=== PATIENT | male | born 1940 | race Caucasian/White ===

== ENCOUNTER 2020-12-23 16:12 | Emergency (ER) | payer OTHER ==
[~2020-12-23] VITALS: Ht 170.2 cm; Wt 65.8 kg
[2020-12-23] MEDS ORDERED: ELIQUIS5 M1 PO (18:04)
== END 2020-12-23 18:15 | disposition home or self-care (01) ==
LOC: ED 16:12
DX: I82.441 Acute embolism and thrombosis of right tibial vein (principal); E11.9 Type 2 diabetes mellitus without complications; Z90.89 Acquired absence of other organs
CPT/HCPCS: 93971; 99283-25

== ENCOUNTER 2022-09-10 06:03 | Observation (INO) | payer OTHER ==
[~2022-09-10] VITALS: Ht 170.2 cm; Wt 60.0 kg
--- OUTSIDE RECORDS SUMMARY | ~2022-09-10 | XMS | Continuity of Care Document ---
Demographics + + + | Address | [address] | | | [place] [address] | + + + | Preferred Language | Unknown | + + + | Marital Status | | + + + | Denominational Affiliation | Unknown | + + + | Race | White | + + + | Ethnic Group | Not or | + + + Author + + + | Author | [place] | + + + | Organization | [place] | + + + | Address | [address] | | | [place], [place] [address] | + + + | Phone | | + + + Care Team Providers + + + + | Care Caddy Name | Role | Phone | + + + + Unavailable | Unavailable | + + + + Unavailable | Unavailable | + + + + Allergies No information. Encounters No information. Functional Status No information. Immunizations No information. Medications + + + + | date | description | facility | + + + + | 2022-02-10 00:00 | [facility] | [facility] | + + + + Problems + + + + | date | description | facility | + + + + | 2020-12-23 00:00 | Deep vein thrombosis (DVT) | [facility] | | | | | + + + + | 2022-02-10 00:00 | Abrasion of scalp | [facility] | + + + + | 2022-02-10 00:00 | Injury of head | [facility] | + + + + Procedures No information. Results/Labs No information. Social History + + + + | date | description | facility | + + + + | 2022-02-10 00:00 | Unknown if ever smoked | [facility] | + + + + Vital Signs + + + +---------+ | date | measurement | value | units | + + + +---------+ | 2022-02-10 00:00 | BMI | 22.7 | kg/m2 | + + + +---------+ | 2022-02-10 00:00 | BP_diastolic | 60 | mmHg | + + + +---------+ | 2022-02-10 00:00 | BP_systolic | 136 | mmHg | + + + +---------+ | 2022-02-10 00:00 | heart_rate | 71 | /min | + + + +---------+ | 2022-02-10 00:00 | height_metric | 170.18 | cm | + + + +---------+ | 2022-02-10 00:00 | height_standard | 67 | in | + + + +---------+ | 2022-02-10 00:00 | o2_saturation | 98 | % | + + + +---------+ | 2022-02-10 00:00 | respiration_rate | 15 | /min | + + + +---------+ | 2022-02-10 00:00 | temperature_metric | 36.83 | C | | | | | | + + + +---------+ | 2022-02-10 00:00 | | 98.3 | F | | | temperature_standar | | | | | d | | | + + + +---------+ | 2022-02-10 00:00 | weight_metric | 65.77 | kg | + + + +---------+ | 2022-02-10 00:00 | weight_standard | 145 | lb | + + + +---------+"
--- OUTSIDE RECORDS SUMMARY | ~2022-09-10 | XMS | Continuity of Care Document ---
Demographics + + + | Address | [address] | | | [place] [address] | + + + | Preferred Language | Unknown | + + + | Marital Status | | + + + | Confucianist Affiliation | Unknown | + + + | Race | White | + + + | Ethnic Group | Not or | + + + Author + + + | Author | [facility] | + + + | Organization | [facility] | + + + | Address | [address] | | | [place], [place] [address] | + + + | Phone | | + + + Care Team Providers + + + + | Care Retail Pricing Coordinator Name | Role | Phone | + + + + Unavailable | Unavailable | + + + + Unavailable | Unavailable | + + + + Allergies No information. Encounters No information. Functional Status No information. Immunizations No information. Medications + + + + | date | description | facility | + + + + | 2022-02-10 00:00 | [facility] | [facility] | + + + + Problems + + + + | date | description | facility | + + + + | 2020-12-23 00:00 | Deep vein thrombosis (DVT) | [facility] | | | | | + + + + | 2022-02-10 00:00 | Abrasion of scalp | [facility] | + + + + | 2022-02-10 00:00 | Injury of head | [facility] | + + + + Procedures No information. Results/Labs No information. Social History + + + + | date | description | facility | + + + + | 2022-02-10 00:00 | Unknown if ever smoked | [facility] | + + + + Vital [...]
--- OUTSIDE RECORDS SUMMARY | ~2022-09-10 | XMS | Continuity of Care Document ---
Demographics + + + | Address | [address] | | | [place] [address] | + + + | Preferred Language | Unknown | + + + | Marital Status | | + + + | Religion Affiliation | Unknown | + + + | Race | White | + + + | Ethnic Group | Not or | + + + Author + + + | Author | [facility] | + + + | Organization | [facility] | + + + | Address | [address] | | | [place] [address] | + + + | Phone | | + + + Care Team Providers + + + + | Care Tool Procurement Coordinator Name | Role | Phone | + + + + Unavailable | Unavailable | + + + + Unavailable | Unavailable | + + + + Allergies and Intolerances + + + + + + | date | description | facility | reaction | severity | + + + + + + | (no date) | No Known Drug | [facility] | (no reaction) | (no severity) | | | Allergies | | | | + + + + + + Encounters No information. Functional Status No information. Immunizations No information. Medications + + + + | date | description | facility | + + + + | 2022-02-10 00:00 | [facility] | [facility] | + + + + Problems + + + + | date | description | facility | + + + + | 2020-12-23 00:00 | Deep vein thrombosis (DVT) | [facility] | | | | | + + + + | 2022-02-10 00:00 | Abrasion of scalp | [facility] | + + + + | 2022-02-10 00:00 | Injury of head | [facility] | + + + + Procedures No information. Results/Labs No information. Social History + + + + | date | description | facility | + + + + | 2022-02-10 00:00 | Unknown if ever smoked | [facility] | + + + + Vital [...]
[~2022-09-10 06:03] MED LIST: ELIQUIS5 M1 PO; METFORMIN HCL500 MG PO
[2022-09-10 06:18] LABS: BASOPHILS 0.5 % (0-2); EOSINOPHILS 1.5 % (0-6); HEMATOCRIT 41.8 % (35.0-50.0); LYMPHOCYTES 29.5 % (24-44); MCH 30.7 (27-36); MCHC 33.4 g/dl (30-36); MONOCYTES 7.4 % (0-12); NEUTROPHILS 61.1 % (39-80); PLATELET COUNT 176 K/uL (140-440); RBC 4.55 M/ul (4.3-5.7); RDW 13.4 (10.5-15.0)
[2022-09-10 06:32] LABS: ALBUMIN 3.5 g/dL (3.4-5.0); ANION GAP 11.3 (7-21); BILIRUBIN, TOTAL 0.5 ng/dL (0.2-1.0); BUN/CREATININE RATIO 15.17 (6.0-28.6); CALCIUM 9.1 mg/dL (8.5-10.1); CREATININE, SERUM 1.12 mg/dL (0.70-1.30); POTASSIUM 3.3 mmol/L (3.5-5.1)
[2022-09-10] MEDS ORDERED: ONDANSETRON HCL4 MG PO (06:50)
[2022-09-10] MEDS ORDERED: MECLIZINE HCL12.5 MG PO (06:50)
[2022-09-10 11:00] VITALS: BP 170/58
--- NOTE | 2022-09-10 11:43 | NUR ---
PT CALLS APPROPRIATELY TO GET UP TO USE THE URNIAL AT BEDSIDE. RETURNS TO RESTING IN BED. STATES HE IS NOT DIZZY WHEN HE IS STILL, JUST WITH MOVEMENT. STANDING AND RETURNING TO BED WELL TOLERATED NO ASSISTANCE REQUIRED. STANDBY FOR SAFETY ONLY. FRESH H20 AND CALL LIGHT AT BEDSIDE DENIES OTHER NEEDS OF
--- NOTE | 2022-09-10 12:17 | NUR ---
PT UP TO WORK WITH P/T MANUVERS CAUSE A BOUT OF N/V. NAUSEA RESOLVES QUICKLY AT REST. PT EATING NOON MEAL CURRENTLY. ALTERNATIVES OFFERED.
--- NOTE | 2022-09-10 12:26 | NUR ---
PT C/O PHILIPPE TYLENOL PROVIDED.
--- NOTE | 2022-09-10 12:55 | NUR ---
CHECKING BACK WITH PT HE AGREES BOTH HEADACHE AND NAUSEA HAVE PASSED. HE IS RESTING EYES CLOSED IN BED AND AGREES HE IS COMFORTABLE.
[2022-09-10] MEDS ORDERED: INSULIN GL100 UNIT/4 SUB-Q (13:26)
[2022-09-10] MEDS ORDERED: [UNRECOGNIZED DRUG - REMARK] (13:26)
--- NOTE | 2022-09-10 13:29 | NUR ---
Will attempt to get a list of current medications from [place] Sunday when open
--- NOTE | 2022-09-10 13:33 | EKG ---
[facility] [address] [place] [address] Signed Sinus rhythm with sinus arrhythmia with occasional premature ventricular complexes Otherwise normal ECG No previous ECGs available Confirmed by Jorge Duckworth MD () on 09/10/2022 1:32:58 PM Electronically Signed By: JORGE DUCKWORTH MD 09/10/22 1333 PATIENT NAME: GURDEEP JAMES Electrocardiogram DATE OF : 38 PHYSICIAN: JORGE DUCKWORTH MD REPORT #: [id number] REPORT IS CONFIDENTIAL AND NOT TO BE RELEASED WITHOUT AUTHORIZATION
[2022-09-10 14:11] VITALS: BP 148/55
--- NOTE | 2022-09-10 14:13 | NUR ---
PATIENT SITTING UP IN BED WATCHING TV. VITALS AND I&O'S CHARTED. CALL LIGHT IN REACH. NO FURTHER NEEDS AT THIS TIME.
--- NOTE | 2022-09-10 14:57 | NUR ---
PT RESTING IN BED AGREES HE IS COMFORTABLE. NO FURTHER NAUSEA OR HEADACHE. CONTINUES TO USE CALL LIGHT TO TOILET DENIES IMMEDIATE NEED AT THIS TIME
--- NOTE | 2022-09-10 16:07 | NUR ---
PT ASSISTED TO USE URINAL, ALEX CARE COMPLETED UNDERGARMENT CHANGED. PT TO THE CHAIR CALL LIGHT AND FRESH H20 IN REACH. HE AMBULATES TO THE CHAIR USING FWW DENIES DIZZINESS OR UNSTEADY GAIT. NO NAUSEA OR OTHER DISCOMFORTS
--- NOTE | 2022-09-10 17:00 | NUR ---
PT BLOOD SUGAR ELEVATED K RIDER INFUSES. INSULIN GIVEN PER SLIDING SCALE. PT UP TO THE TOILET AMBULATES THERE AND BACK WITH NO C/O DIZZINESS. RETURNS TO RESTING IN THE CHAIR WATCHING TV ANTICIPATES EVENING MEAL.
--- NOTE | 2022-09-10 19:13 | NUR ---
REPORT RECEIVED FROM TITA DIAZ. pt UP IN CHAIR WATCHING TV. DENIES NEEDS. CALL LIGHT IN REACH. HR 68 ON TELE 8.
[2022-09-10 20:01] VITALS: BP 145/73
--- NOTE | 2022-09-10 20:13 | NUR ---
CALL LIGHT ANSWERED. pt ASSISTED TO STAND WITH FWW TO VOID IN URINAL. NEW GOWN PROVIDED. TELE IN PLACE, HR 70, SR. ASSESSMENT COMPLETE. NEURO CHECK WNL. pt DENIES ANY DIZZINESS. CBG 231. SS INSULIN ADMINISTERED. SUGAR FREE SNACK PROVIDED. CALL LIGHT IN REACH.
--- NOTE | 2022-09-10 23:13 | NUR ---
pt RESTING IN CHAIR WITH EYES CLOSED. HR 74. BREATHING UNLABORED. CALL LIGHT NEXT TO PATIENT.
[2022-09-11 01:00] VITALS: BP 141/58
--- NOTE | 2022-09-11 01:03 | NUR ---
CALL LIGHT ANSWERED. pt STANDS FOR VOID IN URINAL WITH FWW. DENIES DIZZINESS. BACK IN CHAIR. NEURO CHECK WNL. VSS. CALL LIGHT IN REACH.
--- NOTE | 2022-09-11 03:54 | NUR ---
pt UP IN CHAIR RESTING WITH EYES CLOSED. BREATHING UNLABORED, HR 56 ON TELE, SR. CALL LIGHT NEXT TO pt.
[2022-09-11 05:25] VITALS: BP 143/54
--- NOTE | 2022-09-11 05:35 | NUR ---
PACKING ROOM WORKER IN ROOM. MRI FORM COMPLETE WITH PATIENT AND FAXED TO LAB. NEURO CHECK UNCHANGED. pt DENIES DIZZINESS. DENIES NEEDS. CALL LIGHT IN REACH.
[2022-09-11 05:58] LABS: BASOPHILS 0.4 % (0-2); EOSINOPHILS 1.3 % (0-6); HEMATOCRIT 41.7 % (35.0-50.0); HEMOGLOBIN 13.7 g/dL (12.0-18.0); LYMPHOCYTES 24.6 % (24-44); MCH 30.6 (27-36); MCHC 32.9 g/dl (30-36); MONOCYTES 8.9 % (0-12); NEUTROPHILS 64.8 % (39-80); PLATELET COUNT 177 K/uL (140-440); RBC 4.48 M/ul (4.3-5.7); RDW 13.7 (10.5-15.0)
[2022-09-11 05:59] LABS: ALBUMIN 3.3 g/dL (3.4-5.0); ALBUMIN/GLOBULIN RATIO 0.89 (1.1-2.4); ANION GAP 14.1 (7-21); BILIRUBIN, TOTAL 0.4 ng/dL (0.2-1.0); BUN/CREATININE RATIO 14.28 (6.0-28.6); CALCIUM 9.5 mg/dL (8.5-10.1); CHOLESTEROL/HDL RATIO 2.8; CREATININE, SERUM 0.98 mg/dL (0.70-1.30); MAGNESIUM 1.9 mg/dL (1.8-2.4); PHOSPHORUS, INORGANIC 4.2 mg/dL (2.5-4.9); POTASSIUM 4.1 mmol/L (3.5-5.1)
--- NOTE | 2022-09-11 07:35 | NUR ---
PT SLEEPING IN RECLINER AT TIME OF SHIFT REPORT, LEFT UNDISTURBED. CALL LIGHT IN REACH FRESH H20 ON CHAIRSIDE TABLE. PT APPEARS COMFORTABLE BREATHING EVEN AND UNLABORED
[2022-09-11] MEDS ORDERED: LIPITOR80 MG PO (09:04)
[2022-09-11] MEDS ORDERED: VITAMIN D3125 MC2 PO (09:05)
[2022-09-11] MEDS ORDERED: NORVASC10 MG PO (09:09)
[2022-09-11] MEDS ORDERED: COZAAR25 MG PO (09:10)
[2022-09-11] MEDS ORDERED: FLOMAX0.4 MG PO (09:11)
[2022-09-11] MEDS ORDERED: ACTOS45 MG PO (09:11)
[2022-09-11] MEDS ORDERED: B-12500 MCG PO (09:17)
--- NOTE | 2022-09-11 09:19 | NUR ---
PT TOLERATES MORNING MEAL SITTING UP IN THE CHAIR. ECHOCARDIOGRAM COMPLETED. PT UP AMBULATING ENTHUSIASTICALLY WITH P/T. WELL TOLERATED, PT DENIES ANY SYMPTOMS OF DIZZINESS, NAUSEA, OR OTHER DISCOMFORTS. STATES HE HAS HAD NO SYMPTOMS AT ALL SINCE YESTERDAY. PT RETURNS TO THE CHAIR AFTER THERAPY CALL LIGHT AND NEEDED ITEMS IN REACH.
[2022-09-11] MEDS ORDERED: JARDIANCE25 MG PO (09:20)
--- NOTE | 2022-09-11 09:20 | NUR ---
Spoke with pt and he states he lives alone. He has three friends who assist him. He states he no longer drives. Friends take him grocery shopping and out and about. He has 3 steps into his apartment. He has fallen on the steps a few times and the landlord installed a rail. He is a , but is not service connected. [facility]. Pt would like help with minimal caregiving and with meals on wheels. Let him know I can contact [facility] and request MOW and [employer] [place]. They will call him and complete an evaluation.
[2022-09-11] MEDS ORDERED: HYDROCHLOROTH12.5 MG PO (09:24)
[2022-09-11] MEDS ORDERED: [UNRECOGNIZED DRUG - OTHER] PO (09:40)
[2022-09-11] MEDS ORDERED: CALCIUM PO (09:40)
[2022-09-11 09:51] VITALS: BP 148/54
--- NOTE | 2022-09-11 09:58 | NUR ---
medications reconciled using [facility]
--- NOTE | 2022-09-11 10:59 | NUR ---
PT BACK FROM COMMUNICATIONS INSTRUCTOR REPORTS IT WAS WELL TOLERATED. RETURNS TO SITTING UP IN THE CHAIR NEEDED ITEMS IN REACH
--- NOTE | 2022-09-11 11:55 | NUR ---
PT SITTING IN CHAIR. APPEARED TO BE ALERT AND ORIENTED. TALKED OF EXPECTED VISIT FROM OWN MEDICAL CODING INSTRUCTOR. ACCEPTED OFFER OF GUIDEPOST AND CONTACT CARD. CONSENTED TO PRAYER. PRAYED FOR HEALING AND ABIDING PEACE.
--- NOTE | 2022-09-11 12:48 | NUR ---
PT CONTINUES UP IN THE CHAIR THIS SHIFT, VISITOR AT CHAIRSIDE. PT DENIES ANY DISCOMFORTS OR NEEDS
[2022-09-11] MEDS ORDERED: MECLIZINE HCL25 MG PO (13:04)
[2022-09-11] MEDS ORDERED: PLAVIX75 MG PO (13:06)
[2022-09-11] MEDS ORDERED: ASPIRIN EC325 MG PO (13:06)
[2022-09-11 13:32] VITALS: BP 116/61
--- NOTE | 2022-09-11 13:55 | NUR ---
PT READY FOR DISCHARGE. DISCHRAGE INSTRUCTIONS REVIEWED WITH PT AND PTS FRIEND PER PT REQUEST. PT AND FRIEND VERBALIZES UNDERSTANDING OF INSTRUCTIONS, MEDICATIONS AND FOLLOW UP. PT STATES HE WOULD LIKE TO GET [facility] AND WILL CALL THEM TOMORROW ABOUT [facility] PRESCRIPTIONS. PT TRANSFERSE SELF TO WHEELCHAIR. NO ADDITOINAL REQUESTS OR CONCERNS. PT WHEELED FROM MED/SURG WITH FRIEND.
--- NOTE | 2022-09-11 16:21 | NUR ---
ATTEMPT TO CONTACT [facility] TO SET UP MEALS ON WHEELS AND PRO[employer] FOR PATIENT. NO ANSWER. MESSAGE LEFT FOR IFTIKHAR VARGAS AT [facility] TO PLEASE CONTACT CASE MANAGEMENT.
== END 2022-09-11 13:45 | disposition home or self-care (01) ==
LOC: ED 06:03 → MS 06:04
PROVIDERS: Internal Medicine; ADMIT Family Medicine; ATTEND Family Medicine
DX: R42 Dizziness and giddiness (principal); E87.6 Hypokalemia; E11.9 Type 2 diabetes mellitus without complications; Z66 Do not resuscitate; Z79.84 Long term (current) use of oral hypoglycemic drugs; Z79.4 Long term (current) use of insulin
CPT/HCPCS: 36415; 70450; 70496; 70498; 70551; 80053; 80061; 83036; 83735; 84100; 85025; 93005; 93010; 93306; 96375; 97110; 97116; 97162; 97165; 99285-25; A9270; G0378; J1815; J2405; J3480; J3490; J7040; J7060; Q9967

== ENCOUNTER 2023-06-08 09:53 | Emergency (ER) | payer OTHER ==
[~2023-06-08] VITALS: Ht 170.2 cm; Wt 56.2 kg
[~2023-06-08 09:53] MED LIST changes: +ACTOS45 MG PO; +ASPIRIN EC325 MG PO; +B-12500 MCG PO; +CALCIUM PO; +COZAAR25 MG PO; +FLOMAX0.4 MG PO; +HYDROCHLOROTH12.5 MG PO; +INSULIN GL100 UNIT/4 SUB-Q; +JARDIANCE25 MG PO; +LIPITOR80 MG PO; +MECLIZINE HCL12.5 MG PO; +MECLIZINE HCL25 MG PO; +NORVASC10 MG PO; +ONDANSETRON HCL4 MG PO; +PLAVIX75 MG PO; +VITAMIN D3125 MC2 PO; +[UNRECOGNIZED DRUG - OTHER] PO; +[UNRECOGNIZED DRUG - REMARK]
[2023-06-08] MEDS ORDERED: LACTATED RINGER'S 1,000 ML IV ONE (10:00)
[2023-06-08 10:10] LABS: BASOPHILS 0.9 % (0-2); EOSINOPHILS 1.4 % (0-6); HEMATOCRIT 41.5 % (35.0-50.0); HEMOGLOBIN 14.2 g/dL (12.0-18.0); LYMPHOCYTES 26.3 % (24-44); MCH 31.2 (27-36); MCHC 34.2 g/dl (30-36); MCV 91.2 fl (81-99); MONOCYTES 9.4 % (0-12); PLATELET COUNT 212 K/uL (140-440); RBC 4.55 M/ul (4.3-5.7); RDW 12.9 (10.5-15.0)
[2023-06-08 10:23] LABS: ALBUMIN 3.6 g/dL (3.4-5.0); ALCOHOL, MEDICAL <3 ng/dL (<3); ALKALINE PHOSPHATASE 143 U/L (46-116); ALT (SGPT) 15 U/L (14-59); ANION GAP 14.1 (7-21); AST (SGOT) 11 U/L (15-37); BILIRUBIN, TOTAL 0.7 ng/dL (0.2-1.0); CALCIUM 8.7 mg/dL (8.5-10.1); CARBON DIOXIDE 28 mmol/L (21-32); CHLORIDE 102 mmol/L (98-107); CREATINE KINASE 142 U/L (39-308); CREATININE, SERUM 1.01 mg/dL (0.70-1.30); GLOMERULAR FILTRATION RATE,EST 74 mL/min (>60); POTASSIUM 4.1 mmol/L (3.5-5.1); PROTEIN, TOTAL 7.2 g/dL (6.4-8.2); UREA NITROGEN 20 mg/dL (7-18)
[2023-06-08 12:29] LABS: BILIRUBIN, URINE NEGATIVE (negative); BLOOD/HGB, URINE NEGATIVE (Negative); KETONE, URINE SMALL (Negative); LEUK ESTERASE, URINE NEGATIVE (negative); NITRITE, URINE NEGATIVE (negative)
[2023-06-08 12:50] LABS: AMPHETAMINES, URINE NEGATIVE (NEGATIVE); BARBITURATES, URINE NEGATIVE (NEGATIVE); BENZODIAZEPINE, URINE NEGATIVE (NEGATIVE); BUPRENORPHINE, URINE NEGATIVE (NEGATIVE); CANNABINOID, URINE NEGATIVE (NEGATIVE); COCAINE, URINE NEGATIVE (NEGATIVE); ECSTASY, URINE NEGATIVE (NEGATIVE); FENTANYL, URINE NEGATIVE (NEGATIVE); METHADONE, URINE NEGATIVE (NEGATIVE); OPIATES, URINE NEGATIVE (NEGATIVE); OXYCODONE, URINE NEGATIVE (NEGATIVE); PHENCYCLIDINE, URINE NEGATIVE (NEGATIVE)
[2023-06-08 13:07] VITALS: BP 134/59
[2023-06-09] MEDS ORDERED: PREDNISONE20 MG PO (23:35)
--- NOTE | 2023-06-11 07:19 | EKG ---
[facility] [address] [place] [address] Signed Normal sinus rhythm Normal ECG When compared with ECG of 10-SEP-2022 06:27, premature ventricular complexes are no longer present Confirmed by Irena Brunson MD ([id number]) on 06/11/2023 7:19:20 AM Electronically Signed By: IRENA BRUNSON 06/11/23 0719 PATIENT NAME: GURDEEP JAMES JR Electrocardiogram DATE OF : 38 PHYSICIAN: IRENA BRUNSON REPORT #: [id number] REPORT IS CONFIDENTIAL AND NOT TO BE RELEASED WITHOUT AUTHORIZATION
== END 2023-06-08 13:07 | disposition home or self-care (01) ==
LOC: ED 09:53
PROVIDERS: Emergency Medicine
DX: R53.1 Weakness (principal); S70.02XA Contusion of left hip, initial encounter; W18.30XA Fall on same level, unspecified, initial encounter; E11.9 Type 2 diabetes mellitus without complications; Z79.84 Long term (current) use of oral hypoglycemic drugs; Z79.899 Other long term (current) drug therapy; Z79.4 Long term (current) use of insulin
CPT/HCPCS: 36415; 70450; 71045; 72125; 73502; 80053; 80307; 81003; 82553; 85025; 93005; 93010; 99284-25; G0480; J7121

== ENCOUNTER 2023-06-09 20:39 | Emergency (ER) | payer OTHER ==
[~2023-06-09] VITALS: Ht 170.2 cm; Wt 58.0 kg
[2023-06-09 20:40] VITALS: BP 154/74
--- OUTSIDE RECORDS SUMMARY | 2023-06-09 20:41 | XMS ---
PreManage Notification: GURDEEP JAMES Security Integrated Logistics Support Manager Events No recent Security Events currently on file CRITERIA MET - [facility] - 2 Visits in 30 Days CARE PROVIDERS -[place]- Dentist: Armor Officer [facility] PHONE: [phone] Jimbo has no Care Guidelines for this patient. [place] VISIT COUNT ([address] [facility] TOTAL 3 NOTE: Visits indicate total known visits. ED/UCC VISIT TRACKING (12 MO.) 06/09/2023 20:40 [facility] [place] TYPE: Emergency COMPLAINT: - FALL 06/08/2023 09:54 [facility] [place] TYPE: Emergency COMPLAINT: - FALL 09/10/2022 06:03 [facility] [place] TYPE: Emergency COMPLAINT: - WEAKNESS INPATIENT VISIT TRACKING (12 MO.) 09/10/2022 06:04 [facility] [place] TYPE: Observation COMPLAINT: - POSSIBLE CVA DIAGNOSES: - Dizziness and giddiness - Do not resuscitate - Hypokalemia - longterm (current) use of insulin - longterm (current) use of oral hypoglycemic drugs - Type 2 diabetes mellitus without complications [email or web address]
[2023-06-09 21:03] LABS: BASOPHILS 0.4 % (0-2); EOSINOPHILS 1.8 % (0-6); HEMATOCRIT 38.2 % (35.0-50.0); LYMPHOCYTES 27.2 % (24-44); MCH 31.2 (27-36); MCV 91.7 fl (81-99); MONOCYTES 9.3 % (0-12); NEUTROPHILS 61.3 % (39-80); PLATELET COUNT 188 K/uL (140-440); RBC 4.17 M/ul (4.3-5.7); RDW 13.3 (10.5-15.0)
[2023-06-09 21:19] LABS: ALBUMIN 3.5 g/dL (3.4-5.0); ALBUMIN/GLOBULIN RATIO 1.13 (1.1-2.4); ALCOHOL, MEDICAL <3 ng/dL (<3); ALKALINE PHOSPHATASE 158 U/L (46-116); ALT (SGPT) 13 U/L (14-59); ANION GAP 10.6 (7-21); AST (SGOT) 9 U/L (15-37); BILIRUBIN, TOTAL 0.5 ng/dL (0.2-1.0); BUN/CREATININE RATIO 14.17 (6.0-28.6); CALCIUM 8.5 mg/dL (8.5-10.1); CARBON DIOXIDE 28 mmol/L (21-32); CHLORIDE 99 mmol/L (98-107); CREATININE, SERUM 1.34 mg/dL (0.70-1.30); GLOMERULAR FILTRATION RATE,EST 53 mL/min (>60); POTASSIUM 3.6 mmol/L (3.5-5.1); PROTEIN, TOTAL 6.6 g/dL (6.4-8.2); UREA NITROGEN 19 mg/dL (7-18)
[2023-06-09] MEDS ORDERED: INSULIN LISPRO 100 UNIT/ML ML IV ONE (21:30)
[2023-06-09] MEDS ORDERED: SODIUM CHLORIDE 0.9% 500 ML IV PRN (21:30)
[2023-06-09 21:33] LABS: BILIRUBIN, URINE NEGATIVE (negative); BLOOD/HGB, URINE NEGATIVE (Negative); KETONE, URINE TRACE (Negative); LEUK ESTERASE, URINE NEGATIVE (negative); NITRITE, URINE NEGATIVE (negative); PH, URINE 5.5 (5-7)
[2023-06-09 21:47] LABS: AMPHETAMINES, URINE NEGATIVE (NEGATIVE); BARBITURATES, URINE NEGATIVE (NEGATIVE); BENZODIAZEPINE, URINE NEGATIVE (NEGATIVE); BUPRENORPHINE, URINE NEGATIVE (NEGATIVE); CANNABINOID, URINE NEGATIVE (NEGATIVE); COCAINE, URINE NEGATIVE (NEGATIVE); ECSTASY, URINE NEGATIVE (NEGATIVE); FENTANYL, URINE NEGATIVE (NEGATIVE); METHADONE, URINE NEGATIVE (NEGATIVE); OPIATES, URINE NEGATIVE (NEGATIVE); OXYCODONE, URINE NEGATIVE (NEGATIVE); PHENCYCLIDINE, URINE NEGATIVE (NEGATIVE)
[2023-06-09] MEDS ORDERED: MORPHINE SULFATE 4 MG/ML VIAL IV ONE (22:45)
[2023-06-09] MEDS ORDERED: PREDNISONE20 MG PO (23:35)
== END 2023-06-09 23:45 | disposition home or self-care (01) ==
LOC: ED 20:39
PROVIDERS: Family Medicine
DX: S06.9X9A Unspecified intracranial injury with loss of consciousness of unspecified duration, initial encounter (principal); S76.012A Strain of muscle, fascia and tendon of left hip, initial encounter; E11.9 Type 2 diabetes mellitus without complications; Z79.84 Long term (current) use of oral hypoglycemic drugs; Z79.4 Long term (current) use of insulin; Z79.899 Other long term (current) drug therapy; Z79.82 Long term (current) use of aspirin; Z79.02 Long term (current) use of antithrombotics/antiplatelets; W01.0XXA Fall on same level from slipping, tripping and stumbling without subsequent striking against object, initial encounter
CPT/HCPCS: 36415; 70450; 72125; 73502; 80053; 80307; 81003; 85025; 96374; 99284-25; G0480; J1815; J2270; J7040

== ENCOUNTER 2023-06-14 14:36 | Emergency (ER) | payer OTHER ==
[~2023-06-14] VITALS: Ht 170.2 cm; Wt 56.3 kg
[~2023-06-14 14:36] MED LIST changes: +PREDNISONE20 MG PO
--- OUTSIDE RECORDS SUMMARY | 2023-06-14 14:43 | XMS ---
PreManage Notification: GURDEEP JAMES Security Debit Agent Events No recent Security Events currently on file CRITERIA MET - [facility] - 2 Visits in 30 Days CARE PROVIDERS -[place]- Dentist: Rn Diabetes [facility] PHONE: [phone] Jimbo has no Care Guidelines for this patient. [place] VISIT COUNT (12 MO.) [address] [place] [address] TOTAL 4 NOTE: Visits indicate total known visits. ED/UCC VISIT TRACKING (12 MO.) 06/14/2023 14:37 [facility] [place] TYPE: Emergency COMPLAINT: - FALL 06/09/2023 20:40 [facility] [place] TYPE: Emergency COMPLAINT: - FALL DIAGNOSES: - Fall on same level from slipping, tripping and stumbling without subsequent striking against object, initial encounter - terminal superintendent (current) use of antithrombotics/antiplatelets - MCFP (current) use of aspirin - MCFP (current) use of insulin - terminal superintendent (current) use of oral hypoglycemic drugs - Other custodial (current) drug therapy - Strain of muscle, fascia and tendon of left hip, initial encounter - Type 2 diabetes mellitus without complications - Unspecified injury of head, initial encounter - Unspecified intracranial injury with loss of consciousness of unspecified duration, initial encounter 06/08/2023 09:54 [facility] [place] TYPE: Emergency COMPLAINT: - FALL DIAGNOSES: - Cervicalgia - Contusion of left hip, initial encounter - Fall on same level, unspecified, initial encounter - terminal superintendent (current) use of insulin - terminal superintendent (current) use of oral hypoglycemic drugs - Other custodial (current) drug therapy - Type 2 diabetes mellitus without complications - Weakness 09/10/2022 06:03 [facility] [place] TYPE: Emergency COMPLAINT: - WEAKNESS INPATIENT VISIT TRACKING (12 MO.) 09/10/2022 06:04 [facility] [place] TYPE: Observation COMPLAINT: - POSSIBLE CVA DIAGNOSES: - Dizziness and giddiness - Do not resuscitate - Hypokalemia - terminal superintendent (current) use of insulin - terminal superintendent (current) use of oral hypoglycemic drugs - Type 2 diabetes mellitus without complications [email or web address]
[2023-06-14 16:13] LABS: BASOPHILS 0.2 % (0-2); EOSINOPHILS 0.3 % (0-6); HEMATOCRIT 41.3 % (35.0-50.0); HEMOGLOBIN 13.9 g/dL (12.0-18.0); LYMPHOCYTES 17.8 % (24-44); MCH 30.7 (27-36); MCHC 33.7 g/dl (30-36); MCV 91.2 fl (81-99); MONOCYTES 8.4 % (0-12); NEUTROPHILS 73.3 % (39-80); PLATELET COUNT 210 K/uL (140-440); RBC 4.53 M/ul (4.3-5.7); RDW 12.9 (10.5-15.0)
[2023-06-14 16:21] LABS: ALBUMIN 3.8 g/dL (3.4-5.0); ALBUMIN/GLOBULIN RATIO 1.06 (1.1-2.4); ANION GAP 10.7 (7-21); BILIRUBIN, TOTAL 0.8 ng/dL (0.2-1.0); BUN/CREATININE RATIO 19.19 (6.0-28.6); CALCIUM 9.1 mg/dL (8.5-10.1); CREATININE, SERUM 0.99 mg/dL (0.70-1.30); POTASSIUM 3.7 mmol/L (3.5-5.1); PROTEIN, TOTAL 7.4 g/dL (6.4-8.2)
[2023-06-14 17:06] LABS: BILIRUBIN, URINE NEGATIVE (negative); BLOOD/HGB, URINE NEGATIVE (Negative); KETONE, URINE NEGATIVE (Negative); LEUK ESTERASE, URINE NEGATIVE (negative); NITRITE, URINE NEGATIVE (negative)
[2023-06-14 18:00] VITALS: BP 108/47
--- NOTE | 2023-06-14 22:45 | EKG ---
[facility] [address] [facility] [place] [address] Signed Normal sinus rhythm Normal ECG When compared with ECG of 08-JUN-2023 10:47, No significant change was found Confirmed by FAVIO PULIDO MD ([id number]) on 06/14/2023 10:45:48 PM Electronically Signed By: FAVIO PULIDO 06/14/23 2245 PATIENT NAME: ERIKAGURDEEP JR Electrocardiogram DATE OF : 38 PHYSICIAN: FAVIO PULIDO REPORT #: [id number] REPORT IS CONFIDENTIAL AND NOT TO BE RELEASED WITHOUT AUTHORIZATION
== END 2023-06-14 18:32 | disposition home or self-care (01) ==
LOC: ED 14:36
PROVIDERS: Emergency Medicine
DX: R53.1 Weakness (principal); E11.9 Type 2 diabetes mellitus without complications; Z79.899 Other long term (current) drug therapy; Z79.82 Long term (current) use of aspirin; Z79.52 Long term (current) use of systemic steroids; Z79.84 Long term (current) use of oral hypoglycemic drugs; Z79.4 Long term (current) use of insulin
CPT/HCPCS: 36415; 51798; 80053; 81003; 85025; 93005; 93010; 99283-25

== ENCOUNTER 2023-06-15 18:36 | Emergency (ER) | payer OTHER ==
[~2023-06-15] VITALS: Ht 170.2 cm; Wt 55.4 kg
--- OUTSIDE RECORDS SUMMARY | 2023-06-15 18:39 | XMS ---
PreManage Notification: GURDEEP JAMES Security Scientific Informatics Project Leader Events No recent Security Events currently on file CRITERIA MET - [facility] - 2 Visits in 30 Days CARE PROVIDERS -[place]- Dentist: Canvas Cutter Machine [facility] PHONE: [phone] Jimbo has no Care Guidelines for this patient. [place] VISIT COUNT (12 MO.) [address] [place] [address] TOTAL 5 NOTE: Visits indicate total known visits. ED/UCC VISIT TRACKING (12 MO.) 06/15/2023 18:37 [facility] TYPE: Emergency COMPLAINT: - FALL 06/14/2023 14:37 [facility] TYPE: Emergency COMPLAINT: - FALL 06/09/2023 20:40 [facility] TYPE: Emergency COMPLAINT: - FALL DIAGNOSES: - Fall on same level from slipping, tripping and stumbling without subsequent striking against object, initial encounter - alf (current) use of antithrombotics/antiplatelets - alf (current) use of aspirin - alf (current) use of insulin - alf (current) use of oral hypoglycemic drugs - Other equipment operator intermodal yard (current) drug therapy - Strain of muscle, [...] on same level, unspecified, initial encounter - alf (current) use of insulin - manager terminal (current) use of oral hypoglycemic drugs - Other equipment operator intermodal yard (current) drug therapy - Type 2 diabetes mellitus without complications - Weakness 09/10/2022 06:03 [facility] TYPE: Emergency COMPLAINT: - WEAKNESS INPATIENT VISIT TRACKING (12 MO.) 09/10/2022 06:04 [facility] TYPE: Observation COMPLAINT: - POSSIBLE CVA DIAGNOSES: - Dizziness and giddiness - Do not resuscitate - Hypokalemia - manager terminal (current) use of insulin - alf (current) use of oral hypoglycemic drugs - Type 2 diabetes mellitus without complications [email or web address]
[2023-06-15 18:55] LABS: BASOPHILS 0.4 % (0-2); HEMATOCRIT 38.6 % (35.0-50.0); LYMPHOCYTES 13.3 % (24-44); MCH 30.8 (27-36); MCHC 33.7 g/dl (30-36); MCV 91.4 fl (81-99); MONOCYTES 7.3 % (0-12); PLATELET COUNT 210 K/uL (140-440); RBC 4.22 M/ul (4.3-5.7); RDW 13.1 (10.5-15.0)
[2023-06-15 19:11] LABS: ALBUMIN 3.4 g/dL (3.4-5.0); ALBUMIN/GLOBULIN RATIO 1.06 (1.1-2.4); ANION GAP 13.4 (7-21); BILIRUBIN, TOTAL 0.5 ng/dL (0.2-1.0); BUN/CREATININE RATIO 16.66 (6.0-28.6); CALCIUM 8.6 mg/dL (8.5-10.1); CREATININE, SERUM 1.44 mg/dL (0.70-1.30); POTASSIUM 4.4 mmol/L (3.5-5.1); PROTEIN, TOTAL 6.6 g/dL (6.4-8.2)
[2023-06-15 19:50] LABS: BILIRUBIN, URINE NEGATIVE (negative); BLOOD/HGB, URINE NEGATIVE (Negative); KETONE, URINE TRACE (Negative); LEUK ESTERASE, URINE NEGATIVE (negative); NITRITE, URINE NEGATIVE (negative); PH, URINE 5.5 (5-7)
[2023-06-15 21:56] VITALS: BP 109/54
--- NOTE | 2023-06-16 18:30 | EKG ---
[facility] [address] [facility] [place] [address] Signed Normal sinus rhythm Normal ECG When compared with ECG of 14-JUN-2023 15:50, No significant change was found Confirmed by AFVIO PULIDO MD ([id number]) on 06/16/2023 6:30:41 PM Electronically Signed By: FAVIO PULIDO 06/16/231829 PATIENT NAME: ERIKAGURDEEP JR Electrocardiogram DATE OF : 38 PHYSICIAN: FAVIO PULIDO REPORT #: [id number] REPORT IS CONFIDENTIAL AND NOT TO BE RELEASED WITHOUT AUTHORIZATION
== END 2023-06-15 22:01 | disposition home or self-care (01) ==
LOC: ED 18:36
PROVIDERS: Emergency Medicine
DX: F03.90 Unspecified dementia, unspecified severity, without behavioral disturbance, psychotic disturbance, mood disturbance, and anxiety (principal); R53.1 Weakness; E11.9 Type 2 diabetes mellitus without complications; Z79.899 Other long term (current) drug therapy; Z79.84 Long term (current) use of oral hypoglycemic drugs; Z79.4 Long term (current) use of insulin
CPT/HCPCS: 36415; 70450; 71045; 80053; 81003; 83735; 84484; 85025; 93005; 93010; 99285-25

== ENCOUNTER 2023-06-28 11:55 | Emergency (ER) | payer OTHER ==
[~2023-06-28] VITALS: Ht 170.2 cm; Wt 59.1 kg
--- OUTSIDE RECORDS SUMMARY | 2023-06-28 12:02 | XMS ---
PreManage Notification: GURDEEP JAMES Security Inorganic Chemistry Professor Events No recent Security Events currently on file CRITERIA MET - [facility] - 2 Visits in 30 Days CARE PROVIDERS -[place]- Dentist: Management Services Technician [facility] PHONE: [phone] Jimbo has no Care Guidelines for this patient. [place] VISIT COUNT (12 MO.) [address] [place] [address] TOTAL 6 NOTE: Visits indicate total known visits. ED/C VISIT TRACKING (12 MO.) 06/28/2023 11:56 [facility] TYPE: Emergency COMPLAINT: - HIGH BLOOD SUGAR 06/15/2023 18:37 [facility] TYPE: Emergency COMPLAINT: - FALL DIAGNOSES: - group home (current) use of insulin - manager terminal (current) use of oral hypoglycemic drugs - Other fpc (current) drug therapy - Type 2 diabetes mellitus without complications - Unspecified dementia, unspecified severity, without behavioral disturbance, psychotic disturbance, mood disturbance, and anxiety - Weakness 06/14/2023 14:37 [facility] TYPE: Emergency COMPLAINT: - FALL DIAGNOSES: - group home (current) use of aspirin - group home (current) use of insulin - group home (current) use of oral hypoglycemic drugs - group home (current) use of systemic steroids - Other termite inspector (current) drug therapy - Type 2 diabetes mellitus without complications - Weakness 06/09/2023 20:40 [facility] [place] TYPE: Emergency COMPLAINT: - FALL DIAGNOSES: - Fall on same level from slipping, tripping and stumbling without subsequent striking against object, initial encounter - group home (current) use of antithrombotics/antiplatelets - group home (current) use of aspirin - group home (current) use of insulin - group home (current) use of oral hypoglycemic drugs - Other termite inspector (current) drug therapy - Strain of muscle, [...] on same level, unspecified, initial encounter - manager terminal (current) use of insulin - manager terminal (current) use of oral hypoglycemic drugs - Other termite inspector (current) drug therapy - Type 2 diabetes mellitus without complications - Weakness 09/10/2022 06:03 [facility] [place] TYPE: Emergency COMPLAINT: - WEAKNESS INPATIENT VISIT TRACKING (12 MO.) 09/10/2022 06:04 [facility] [place] TYPE: Observation COMPLAINT: - POSSIBLE CVA DIAGNOSES: - Dizziness and giddiness - Do not resuscitate - Hypokalemia - group home (current) use of insulin - manager terminal (current) use of oral hypoglycemic drugs - Type 2 diabetes mellitus without complications [email or web address]
[2023-06-28 12:26] LABS: BILIRUBIN, URINE NEGATIVE (negative); BLOOD/HGB, URINE NEGATIVE (Negative); KETONE, URINE NEGATIVE (Negative); LEUK ESTERASE, URINE NEGATIVE (negative); NITRITE, URINE NEGATIVE (negative); PH, URINE 5.5 (5-7)
[2023-06-28 12:27] LABS: PH, VENOUS 7.381 (7.31-7.41)
[2023-06-28 12:31] LABS: BACTERIA, URINE NONE SEEN /hpf (negative); CASTS, URINE NONE SEEN \\lpf; COLLECTION TYPE, URINE CLEAN CATCH; CRYSTALS, URINE NONE SEEN (0-1+); EPITHELIAL CELLS, URINE 0 /lpf (0-1+); RED BLOOD CELLS, URINE 0-1 /hpf (0-5); REFLEX CULTURE, URINE No (No); WHITE BLOOD CELLS, URINE 0-1 /HPF (0-5)
[2023-06-28 12:35] LABS: ALBUMIN 3.5 g/dL (3.4-5.0); ANION GAP 11.9 (7-21); BILIRUBIN, TOTAL 0.4 ng/dL (0.2-1.0); BUN/CREATININE RATIO 31.11 (6.0-28.6); CALCIUM 8.7 mg/dL (8.5-10.1); CREATININE, SERUM 0.9 mg/dL (0.70-1.30); POTASSIUM 4.9 mmol/L (3.5-5.1)
[2023-06-28] MEDS ORDERED: SODIUM CHLORIDE 0.9% 1,000 ML IV PRN (14:15)
[2023-06-28] MEDS ORDERED: LACTATED RINGER'S 1,000 ML IV PRN (14:15)
[2023-06-28 15:51] VITALS: BP 130/61
== END 2023-06-28 15:51 | disposition home or self-care (01) ==
LOC: ED 11:55
PROVIDERS: Emergency Medicine
DX: E11.65 Type 2 diabetes mellitus with hyperglycemia (principal); Z79.899 Other long term (current) drug therapy; Z79.84 Long term (current) use of oral hypoglycemic drugs; Z79.4 Long term (current) use of insulin; Z79.82 Long term (current) use of aspirin
CPT/HCPCS: 36415; 80053; 81001; 82803; 99283; J7121

== ENCOUNTER 2023-07-17 22:07 | Emergency (ER) | payer OTHER ==
[~2023-07-17] VITALS: Ht 170.2 cm; Wt 61.1 kg
--- OUTSIDE RECORDS SUMMARY | 2023-07-17 22:09 | XMS ---
PreManage Notification: GURDEEP JAMES Security Web Content Director Events No recent Security Events currently on file CRITERIA MET - 6 ED Visits in 6 Months - [facility] - 2 Visits in 30 Days CARE PROVIDERS -, [facility] Dentist: Team Primary Care Physician [facility] PHONE: [phone] -Shahbaz- Dentist: Team Primary Care Physician [facility] Dental [facility] PHONE: [phone] Jimbo has no Care Guidelines for this patient. EMohit VISIT COUNT (12 MO.) [address] [place] [address] TOTAL 7 NOTE: Visits indicate total known visits. ED/UCC VISIT TRACKING (12 MO.) 07/17/2023 22:08 [facility] [place] TYPE: Emergency COMPLAINT: - AMS 06/28/2023 11:56 [facility] [place] TYPE: Emergency COMPLAINT: - HIGH BLOOD SUGAR DIAGNOSES: - intermodal owner operator truck driver (current) use of aspirin - intermodal owner operator truck driver (current) use of insulin - senior care (current) use of oral hypoglycemic drugs - Other prison (current) drug therapy - Type 2 diabetes mellitus with hyperglycemia 06/15/2023 18:37 [facility] [place] TYPE: Emergency COMPLAINT: - FALL DIAGNOSES: - senior care (current) use of insulin - intermodal owner operator truck driver (current) use of oral hypoglycemic drugs - Other prison (current) drug therapy - Type 2 diabetes mellitus without complications - Unspecified dementia, unspecified severity, without behavioral disturbance, psychotic disturbance, mood disturbance, and anxiety - Weakness 06/14/2023 14:37 [facility] [place] TYPE: Emergency COMPLAINT: - FALL DIAGNOSES: - senior care (current) use of aspirin - senior care (current) use of insulin - senior care (current) use of oral hypoglycemic drugs - intermodal owner operator truck driver (current) use of systemic steroids - Other intermodal owner operator truck driver (current) drug therapy - Type 2 diabetes mellitus without complications - Weakness 06/09/2023 20:40 [facility] [place] TYPE: Emergency COMPLAINT: - FALL DIAGNOSES: - Fall on same level from slipping, tripping and stumbling without subsequent striking against object, initial encounter - senior care (current) use of antithrombotics/antiplatelets - senior care (current) use of aspirin - intermodal owner operator truck driver (current) use of insulin - senior care (current) use of oral hypoglycemic drugs - Other intermodal owner operator truck driver (current) drug therapy - Strain of muscle, [...] on same level, unspecified, initial encounter - intermodal owner operator truck driver (current) use of insulin - intermodal owner operator truck driver (current) use of oral hypoglycemic drugs - Other prison (current) drug therapy - Type 2 diabetes mellitus without complications - Weakness 09/10/2022 06:03 [facility] [place] TYPE: Emergency COMPLAINT: - WEAKNESS INPATIENT VISIT TRACKING (12 MO.) 09/10/2022 06:04 [facility] [place] TYPE: Observation COMPLAINT: - POSSIBLE CVA DIAGNOSES: - Dizziness and giddiness - Do not resuscitate - Hypokalemia - senior care (current) use of insulin - senior care (current) use of oral hypoglycemic drugs - Type 2 diabetes mellitus without complications [email or web address]
[2023-07-17 22:25] LABS: BASOPHILS 0.8 % (0-2); EOSINOPHILS 3.2 % (0-6); HEMATOCRIT 34.7 % (35.0-50.0); HEMOGLOBIN 11.7 g/dL (12.0-18.0); LYMPHOCYTES 33.4 % (24-44); MCH 31.2 (27-36); MCHC 33.7 g/dl (30-36); MCV 92.7 fl (81-99); MONOCYTES 8.7 % (0-12); NEUTROPHILS 53.9 % (39-80); PLATELET COUNT 171 K/uL (140-440); RBC 3.74 M/ul (4.3-5.7); RDW 13.5 (10.5-15.0)
[2023-07-17 22:41] LABS: ALBUMIN 3.1 g/dL (3.4-5.0); ALBUMIN/GLOBULIN RATIO 1.03 (1.1-2.4); ANION GAP 12.4 (7-21); BILIRUBIN, TOTAL 0.4 ng/dL (0.2-1.0); BUN/CREATININE RATIO 30.7 (6.0-28.6); CREATININE, SERUM 1.14 mg/dL (0.70-1.30); POTASSIUM 4.4 mmol/L (3.5-5.1); PROTEIN, TOTAL 6.1 g/dL (6.4-8.2)
[2023-07-17 23:33] LABS: BILIRUBIN, URINE NEGATIVE (negative); BLOOD/HGB, URINE NEGATIVE (Negative); KETONE, URINE NEGATIVE (Negative); LEUK ESTERASE, URINE NEGATIVE (negative); NITRITE, URINE NEGATIVE (negative)
[2023-07-17] MEDS ORDERED: INSULIN GLARGINE-YFGN 100 UNIT/ML ML SUB-Q ONE (23:45)
[2023-07-17] MEDS ORDERED: EMPAGLIFLOZIN 10 MG TAB PO ONE (23:45)
[2023-07-18 00:31] VITALS: BP 131/61
== END 2023-07-18 00:30 | disposition home or self-care (01) ==
LOC: ED 22:07
PROVIDERS: Family Medicine
DX: E11.65 Type 2 diabetes mellitus with hyperglycemia (principal); Z79.82 Long term (current) use of aspirin; Z79.84 Long term (current) use of oral hypoglycemic drugs; Z79.4 Long term (current) use of insulin; Z79.899 Other long term (current) drug therapy
CPT/HCPCS: 36415; 80053; 81003; 85025; A9270

== ENCOUNTER 2023-10-02 09:06 | Emergency (ER) | payer OTHER ==
[~2023-10-02] VITALS: Ht 170.2 cm; Wt 62.4 kg
--- OUTSIDE RECORDS SUMMARY | 2023-10-02 09:10 | XMS ---
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 E.DMia VISIT COUNT (12 MO.) [address] [place], [place] [address] - [place] TOTAL 8 NOTE: Visits indicate total known visits. ED/UCC VISIT TRACKING (12 MO.) 10/02/2023 09:07 [facility]INA Taavrez TYPE: Emergency COMPLAINT: - SEIZURES 09/04/2023 00:00 [facility] Haley Powell TYPE: Emergency 07/17/2023 22:08 [facility] [place] TYPE: Emergency COMPLAINT: - AMS DIAGNOSES: - assisted (current) use of aspirin - assisted (current) use of insulin - assisted (current) use of oral hypoglycemic drugs - Other bed bug exterminator (current) drug therapy - Type 2 diabetes mellitus with hyperglycemia 06/28/2023 11:56 [facility] [place] TYPE: Emergency COMPLAINT: - HIGH BLOOD SUGAR DIAGNOSES: - assisted (current) use of aspirin - assisted (current) use of insulin - supervisor intermediates (current) use of oral hypoglycemic drugs - Other bed bug exterminator (current) drug therapy - Type 2 diabetes mellitus with hyperglycemia 06/15/2023 18:[address] [facility] [address] [facility] [place] TYPE: Emergency COMPLAINT: - FALL DIAGNOSES: - supervisor intermediates (current) use of insulin - assisted (current) use of oral hypoglycemic drugs - Other senior living (current) drug therapy - Type 2 diabetes mellitus without complications - Unspecified dementia, unspecified severity, without behavioral disturbance, psychotic disturbance, mood disturbance, and anxiety - Weakness 06/14/2023 14:[address] [facility] [address] [facility] [place] TYPE: Emergency COMPLAINT: - FALL DIAGNOSES: - supervisor intermediates (current) use of aspirin - supervisor intermediates (current) use of insulin - assisted (current) use of oral hypoglycemic drugs - assisted (current) use of systemic steroids - Other senior living (current) drug therapy - Type 2 diabetes mellitus without complications - Weakness 06/09/2023 20:[address] [facility] [address] [facility] [place] TYPE: Emergency COMPLAINT: - FALL DIAGNOSES: - Fall on same level from slipping, tripping and stumbling without subsequent striking against object, initial encounter - supervisor intermediates (current) use of antithrombotics/antiplatelets - assisted (current) use of aspirin - supervisor intermediates (current) use of insulin - supervisor intermediates (current) use of oral hypoglycemic drugs - Other senior living (current) drug therapy - Strain of muscle, [...] on same level, unspecified, initial encounter - assisted (current) use of insulin - supervisor intermediates (current) use of oral hypoglycemic drugs - Other bed bug exterminator (current) drug therapy - Type 2 diabetes mellitus without complications - Weakness INPATIENT VISIT TRACKING (12 MO.) No inpatient visits to display in this time frame [email or web address]
[2023-10-02] MEDS ORDERED: LIPITOR40 MG PO (09:27)
[2023-10-02] MEDS ORDERED: [UNRECOGNIZED DRUG - OTHER] OPTH (09:28)
[2023-10-02 09:45] LABS: ALBUMIN 3.4 g/dL (3.4-5.0); ALBUMIN/GLOBULIN RATIO 0.94 (1.1-2.4); ANION GAP 11.4 (7-21); BILIRUBIN, TOTAL 0.6 ng/dL (0.2-1.0); POTASSIUM 4.4 mmol/L (3.5-5.1)
[2023-10-02 09:54] LABS: BILIRUBIN, URINE NEGATIVE (negative); BLOOD/HGB, URINE NEGATIVE (Negative); KETONE, URINE NEGATIVE (Negative); LEUK ESTERASE, URINE NEGATIVE (negative); NITRITE, URINE NEGATIVE (negative)
[2023-10-02 10:11] LABS: BASOPHILS 0.5 % (0-2); EOSINOPHILS 1.9 % (0-6); HEMATOCRIT 40.1 % (35.0-50.0); HEMOGLOBIN 13.7 g/dL (12.0-18.0); LYMPHOCYTES 24.5 % (24-44); MCH 31.1 (27-36); MCHC 34.2 g/dl (30-36); MCV 91.1 fl (81-99); MONOCYTES 7.5 % (0-12); NEUTROPHILS 65.6 % (39-80); PLATELET COUNT 162 K/uL (140-440); RDW 12.6 (10.5-15.0)
[2023-10-02 10:28] VITALS: BP 129/58
== END 2023-10-02 10:29 | disposition home or self-care (01) ==
LOC: ED 09:06
PROVIDERS: Emergency Medicine
DX: R21 Rash and other nonspecific skin eruption (principal); E11.9 Type 2 diabetes mellitus without complications; Z79.4 Long term (current) use of insulin; Z66 Do not resuscitate; Z79.899 Other long term (current) drug therapy
CPT/HCPCS: 36415; 80053; 81003; 85025; 99284

== ENCOUNTER 2024-03-15 07:17 | Emergency (ER) | payer OTHER ==
[~2024-03-15] VITALS: Ht 170.2 cm; Wt 68.0 kg
[~2024-03-15 07:17] MED LIST changes: -INSULIN GL100 UNIT/4 SUB-Q; +INSULIN GL300 UNIT/1; +LIPITOR40 MG PO; +[UNRECOGNIZED DRUG - OTHER] OPTH
[2024-03-15] MEDS ORDERED: ACETAMINOPHEN500 MG PO (07:32)
[2024-03-15] MEDS ORDERED: METFORMIN HCL500 MG PO (07:34)
[2024-03-15] MEDS ORDERED: INSULIN AS100 UNIT/3 (07:34)
[2024-03-15 08:51] VITALS: BP 122/56
== END 2024-03-15 09:02 | disposition home or self-care (01) ==
LOC: ED 07:17
DX: S50.12XA Contusion of left forearm, initial encounter (principal); S70.02XA Contusion of left hip, initial encounter; W18.39XA Other fall on same level, initial encounter; I10 Essential (primary) hypertension; E11.9 Type 2 diabetes mellitus without complications; E78.5 Hyperlipidemia, unspecified; F01.50 Vascular dementia, unspecified severity, without behavioral disturbance, psychotic disturbance, mood disturbance, and anxiety; Z79.4 Long term (current) use of insulin; Z79.84 Long term (current) use of oral hypoglycemic drugs; Z79.899 Other long term (current) drug therapy
CPT/HCPCS: 99283

== ENCOUNTER 2024-06-05 11:55 | Emergency (ER) | payer OTHER ==
[~2024-06-05] VITALS: Ht 170.2 cm; Wt 66.0 kg
[~2024-06-05 11:55] MED LIST changes: +ACETAMINOPHEN500 MG PO; +INSULIN AS100 UNIT/3
[2024-06-05 12:29] LABS: BASOPHILS 0.4 % (0-2); HEMATOCRIT 37.3 % (35.0-50.0); MCH 30.2 (27-36); MCHC 34.8 g/dl (30-36); MONOCYTES 10.3 % (0-12); NEUTROPHILS 69.3 % (39-80); PLATELET COUNT 201 K/uL (140-440); RBC 4.29 M/ul (4.3-5.7); RDW 13.4 (10.5-15.0)
[2024-06-05 12:39] LABS: ALBUMIN 3.3 g/dL (3.4-5.0); ALBUMIN/GLOBULIN RATIO 0.83 (1.1-2.4); ANION GAP 12.1 (7-21); BILIRUBIN, TOTAL 0.7 mg/dL (0.2-1.0); BUN/CREATININE RATIO 12.8 (6.0-28.6); CALCIUM 8.8 mg/dL (8.5-10.1); CREATININE, SERUM 1.25 mg/dL (0.70-1.30); POTASSIUM 4.1 mmol/L (3.5-5.1); PROTEIN, TOTAL 7.3 g/dL (6.4-8.2)
[2024-06-05 13:32] VITALS: BP 112/65
[2024-06-06] MEDS ORDERED: ZITHROMAX250 MG PO (11:18)
--- NOTE | 2024-06-06 12:43 | EKG ---
[facility] [address] [facility] [place] [address] Signed Sinus rhythm with premature atrial complexes Otherwise normal ECG When compared with ECG of 15-JUN-2023 19:04, premature atrial complexes are now present Confirmed by Sreekanth Burton DO ([id number]) on 06/06/2024 12:43:23 PM Electronically Signed By: SREEKANTH BURTON DO 06/06/24 1243 PATIENT NAME: GURDEEP JAMES Electrocardiogram DATE OF : 38 PHYSICIAN: SREEKANTH BURTON DO REPORT #: [id number] REPORT IS CONFIDENTIAL AND NOT TO BE RELEASED WITHOUT AUTHORIZATION
== END 2024-06-05 13:32 | disposition home or self-care (01) ==
LOC: ED 11:55
PROVIDERS: Emergency Medicine
DX: R07.9 Chest pain, unspecified (principal); I12.9 Hypertensive chronic kidney disease with stage 1 through stage 4 chronic kidney disease, or unspecified chronic kidney disease; E11.9 Type 2 diabetes mellitus without complications; N18.9 Chronic kidney disease, unspecified; E78.5 Hyperlipidemia, unspecified; Z79.899 Other long term (current) drug therapy; Z79.84 Long term (current) use of oral hypoglycemic drugs; Z79.4 Long term (current) use of insulin
CPT/HCPCS: 36415; 80053; 84484; 85025; 93005; 93010; 99285

== ENCOUNTER 2024-06-06 09:21 | Emergency (ER) | payer OTHER ==
[~2024-06-06] VITALS: Ht 170.2 cm; Wt 64.9 kg
--- OUTSIDE RECORDS SUMMARY | 2024-06-06 09:28 | XMS ---
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 E.Justin VISIT COUNT (12 MO.) [facility] [facility] NOTE: Visits indicate total known visits. ED/UCC VISIT TRACKING (12 MO.) 06/06/2024 09:22 [facility] [place] TYPE: Emergency COMPLAINT: - SHORTNESS OF BREATH 06/05/2024 11:56 [facility] [place] TYPE: Emergency COMPLAINT: - CHEST PAIN 03/15/2024 07:18 [facility] [place] TYPE: Emergency COMPLAINT: - FALL DIAGNOSES: - Contusion of left forearm, initial encounter - Contusion of left hip, initial encounter - Essential (primary) hypertension - Hyperlipidemia, unspecified - office bookkeeper (current) use of insulin - retirement (current) use of oral hypoglycemic drugs - Other fall on same level, initial encounter - Other fpc (current) drug therapy - Pain in left forearm - Type 2 diabetes mellitus without complications - Vascular dementia, unspecified severity, without behavioral disturbance, psychotic disturbance, mood disturbance, and anxiety 11/04/2023 08:56 [facility] [place] TYPE: Emergency COMPLAINT: - SYNCOPAL EPISODE DIAGNOSES: - Encounter for observation for other suspected diseases and conditions ruled out - Essential (primary) hypertension - Hyperlipidemia, unspecified - retirement (current) use of insulin - Other roll former (current) drug therapy - Syncope and collapse - Type 2 diabetes mellitus without complications - Vascular dementia, unspecified severity, without behavioral disturbance, psychotic disturbance, mood disturbance, and anxiety 10/02/2023 09:07 [facility] [place] TYPE: Emergency COMPLAINT: - SEIZURES DIAGNOSES: - Do not resuscitate - office bookkeeper (current) use of insulin - Other roll former (current) drug therapy - Rash and other nonspecific skin eruption - Type 2 diabetes mellitus without complications - Unspecified convulsions 09/04/2023 00:00 [facility] Jeremi Powell TYPE: Emergency 07/17/2023 22:08 [facility] [place] TYPE: Emergency COMPLAINT: - AMS DIAGNOSES: - retirement (current) use of aspirin - retirement (current) use of insulin - retirement (current) use of oral hypoglycemic drugs - Other roll former (current) drug therapy - Type 2 diabetes mellitus with hyperglycemia 06/28/2023 11:56 MALINA Tavarez TYPE: Emergency COMPLAINT: - HIGH BLOOD SUGAR DIAGNOSES: - retirement (current) use of aspirin - retirement (current) use of insulin - office bookkeeper (current) use of oral hypoglycemic drugs - Other fpc (current) drug therapy - Type 2 diabetes mellitus with hyperglycemia 06/15/2023 18:37 [facility] [place] TYPE: Emergency COMPLAINT: - FALL DIAGNOSES: - retirement (current) use of insulin - office bookkeeper (current) use of oral hypoglycemic drugs - Other roll former (current) drug therapy - Type 2 diabetes mellitus without complications - Unspecified dementia, unspecified severity, without behavioral disturbance, psychotic disturbance, mood disturbance, and anxiety - Weakness 06/14/2023 14:37 [facility] [place] TYPE: Emergency COMPLAINT: - FALL DIAGNOSES: - office bookkeeper (current) use of aspirin - retirement (current) use of insulin - office bookkeeper (current) use of oral hypoglycemic drugs - retirement (current) use of systemic steroids - Other roll former (current) drug therapy - Type 2 diabetes mellitus without complications - Weakness 06/09/2023 20:40 [facility] [place] TYPE: Emergency COMPLAINT: - FALL DIAGNOSES: - Fall on same level from slipping, tripping and stumbling without subsequent striking against object, initial encounter - retirement (current) use of antithrombotics/antiplatelets - office bookkeeper (current) use of aspirin - retirement (current) use of insulin - office bookkeeper (current) use of oral hypoglycemic drugs - Other fpc (current) drug therapy - Strain of muscle, fascia and tendon of left hip, initial encounter - Type 2 diabetes mellitus without complications - Unspecified injury of head, initial encounter - Unspecified intracranial injury with loss of consciousness of unspecified duration, initial encounter 06/08/2023 09:[address] [facility] [address] [place] TYPE: Emergency COMPLAINT: - FALL DIAGNOSES: - Cervicalgia - Contusion of left hip, initial encounter - Fall on same level, unspecified, initial encounter - office bookkeeper (current) use of insulin - retirement (current) use of oral hypoglycemic drugs - Other roll former (current) drug therapy - Type 2 diabetes mellitus without complications - Weakness INPATIENT VISIT TRACKING (12 MO.) No inpatient visits to display in this time frame [email or web address]
[2024-06-06 10:53] LABS: INFLUENZA B NAA NEGATIVE (NEGATIVE); RESPIRATORY SYNCYTIAL VIR NAA NEGATIVE (NEGATIVE)
[2024-06-06] MEDS ORDERED: ZITHROMAX250 MG PO (11:18)
[2024-06-06] MEDS ORDERED: AZITHROMYCIN 250 MG HOME.PACK PO ONE ×2 (11:20→11:30)
[2024-06-06 11:39] VITALS: BP 109/68
== END 2024-06-06 11:39 | disposition home or self-care (01) ==
LOC: ED 09:21
PROVIDERS: Emergency Medicine
DX: J18.9 Pneumonia, unspecified organism (principal); I10 Essential (primary) hypertension; E78.5 Hyperlipidemia, unspecified; E11.22 Type 2 diabetes mellitus with diabetic chronic kidney disease; N18.9 Chronic kidney disease, unspecified; Z79.84 Long term (current) use of oral hypoglycemic drugs; Z79.4 Long term (current) use of insulin; Z79.899 Other long term (current) drug therapy
CPT/HCPCS: 71045; 87502; 99285-25; U0002

== ENCOUNTER 2024-07-19 15:48 | Emergency (ER) | payer OTHER ==
[~2024-07-19] VITALS: Ht 170.2 cm; Wt 66.1 kg
[~2024-07-19 15:48] MED LIST changes: -INSULIN AS100 UNIT/3; +INSULIN AS100 UNIT/3 SUB-Q; +ZITHROMAX250 MG PO
[2024-07-19 20:54] VITALS: BP 151/73
== END 2024-07-19 20:54 | disposition home or self-care (01) ==
LOC: ED 15:48
DX: S02.2XXA Fracture of nasal bones, initial encounter for closed fracture (principal); S00.212A Abrasion of left eyelid and periocular area, initial encounter; S00.81XA Abrasion of other part of head, initial encounter; E11.9 Type 2 diabetes mellitus without complications; I10 Essential (primary) hypertension; E78.5 Hyperlipidemia, unspecified; W06.XXXA Fall from bed, initial encounter; Z79.4 Long term (current) use of insulin; Z79.84 Long term (current) use of oral hypoglycemic drugs; Z79.899 Other long term (current) drug therapy
CPT/HCPCS: 70450; 70486; 72125; 99284-25

== ENCOUNTER 2024-08-31 00:33 | Emergency (ER) | payer OTHER ==
[~2024-08-31] VITALS: Ht 170.2 cm; Wt 71.3 kg
[2024-08-31 00:57] LABS: BASOPHILS 0.2 % (0.2-1.2); EOSINOPHILS 2.1 % (0.8-7.0); LYMPHOCYTES 19.6 % (21.8-53.1); MCH 30.0 PG (25.7-32.2); MCHC 32.5 g/dL (32.3-36.5); MCV 92.3 fL (79.0-92.2); MONOCYTES 7.8 % (5.3-12.2); NEUTROPHILS 70.0 % (34.0-67.9); RBC 3.63 M/uL (4.63-6.08)
[2024-08-31 01:14] LABS: ALT (SGPT) 17.0 U/L (14-59); AST (SGOT) 12.0 U/L (15-37); GLOMERULAR FILTRATION RATE,EST 68.0 mL/min (>60); PROTEIN, TOTAL 6.7 g/dL (6.4-8.2); UREA NITROGEN 17.0 mg/dL (7-18)
[2024-08-31 02:03] LABS: BLOOD/HGB, URINE NEGATIVE (Negative); KETONE, URINE NEGATIVE (Negative); LEUK ESTERASE, URINE NEGATIVE (negative); NITRITE, URINE NEGATIVE (negative)
[2024-08-31 05:49] VITALS: BP 131/81
--- NOTE | 2024-08-31 21:17 | EKG ---
[facility] [address] [facility] [place] [address] Signed Normal sinus rhythm Normal ECG When compared with ECG of 05-JUN-2024 11:57, premature atrial complexes are no longer present Confirmed by Jorge Duckworth MD () on 08/31/2024 9:16:46 PM Electronically Signed By: JORGE DUCKWORTH MD 08/31/247 PATIENT NAME: GURDEEP JAMES Electrocardiogram DATE OF : 38 PHYSICIAN: JORGE DUCKWORTH MD REPORT #: [id number] REPORT IS CONFIDENTIAL AND NOT TO BE RELEASED WITHOUT AUTHORIZATION
== END 2024-08-31 05:50 | disposition home or self-care (01) ==
LOC: ED 00:33
PROVIDERS: Family Medicine
DX: R42 Dizziness and giddiness (principal); S09.90XA Unspecified injury of head, initial encounter; E78.5 Hyperlipidemia, unspecified; I12.9 Hypertensive chronic kidney disease with stage 1 through stage 4 chronic kidney disease, or unspecified chronic kidney disease; E11.22 Type 2 diabetes mellitus with diabetic chronic kidney disease; N18.9 Chronic kidney disease, unspecified; Z79.84 Long term (current) use of oral hypoglycemic drugs; Z79.4 Long term (current) use of insulin
CPT/HCPCS: 36415; 70450; 80053; 81003; 84484; 85025; 93005; 93010; 99284

== ENCOUNTER 2024-12-07 08:58 | Emergency (ER) | payer OTHER ==
[~2024-12-07] VITALS: Ht 170.2 cm; Wt 70.0 kg
[~2024-12-07 08:58] MED LIST changes: +VITAMIN B12500 MCG PO; +VITAMIN D325 MC2 PO
[2024-12-07 10:15] VITALS: BP 137/63
--- NOTE | 2024-12-08 21:32 | EKG ---
[facility] [address] [facility] [place] [address] Signed Normal sinus rhythm Normal ECG When compared with ECG of 31-AUG-2024 00:48, No significant change was found Confirmed by Jorge Duckworth MD () on 12/08/2024 9:32:38 PM Electronically Signed By: JORGE DUCKWORTH MD 12/08/242131 PATIENT NAME: GURDEEP JAMES Electrocardiogram DATE OF : 38 PHYSICIAN: JORGE DUCKWORTH MD REPORT #: [id number] REPORT IS CONFIDENTIAL AND NOT TO BE RELEASED WITHOUT AUTHORIZATION
== END 2024-12-07 10:15 | disposition home or self-care (01) ==
LOC: ED 08:58
DX: R07.9 Chest pain, unspecified (principal); I12.9 Hypertensive chronic kidney disease with stage 1 through stage 4 chronic kidney disease, or unspecified chronic kidney disease; E11.22 Type 2 diabetes mellitus with diabetic chronic kidney disease; E78.5 Hyperlipidemia, unspecified; N18.9 Chronic kidney disease, unspecified; Z79.4 Long term (current) use of insulin; Z79.899 Other long term (current) drug therapy
CPT/HCPCS: 93005; 93010; 99285